=== PATIENT | female | born 1940 | race Caucasian/White ===

== ENCOUNTER 2016-09-04 18:09 | Inpatient (IN) | payer MEDICARE, OTHER ==
[~2016-09-04] VITALS: Ht 165.1 cm; Wt 85.9 kg
[2016-09-04] MEDS ORDERED: DILTIAZEM 125 MG in DEXTROSE 5% 100 ML IV SCH (18:32)
[2016-09-04] MEDS ORDERED: DILTIAZEM 5 MG/ML, 5ML IVPush STA (18:32)
[2016-09-04] MEDS ORDERED: PARO20TA4 PO (18:34)
[2016-09-04] MEDS ORDERED: LISI40TA PO (18:34)
[2016-09-04] MEDS ORDERED: VITA400C40 PO (18:34)
[2016-09-04] MEDS ORDERED: AMLO10TA2 PO (18:34)
[2016-09-04] MEDS ORDERED: ASCO500T8 PO (18:34)
[2016-09-04] MEDS ORDERED: CALCIUM PO (18:34)
[2016-09-04] MEDS ORDERED: ALEN70TA5 PO (18:34)
[2016-09-04] MEDS ORDERED: CHOL20002 PO (18:34)
[2016-09-04] MEDS ORDERED: MAGN400T36 PO (18:34)
[2016-09-04] MEDS ORDERED: METF500T4 PO (18:34)
[2016-09-04] MEDS ORDERED: PYCNOGENOL PO (18:34)
[2016-09-04] MEDS ORDERED: DILTIAZEM 5 MG/ML, 5ML ONE ×2 (18:38→20:13)
[2016-09-04 18:54] LABS: BLOOD UREA NITROGEN 24 mg/dL (7-18)
[2016-09-04] MEDS ORDERED: ENOXAPARIN 80 MG/0.8 ML ONE (20:17)
[2016-09-04] MEDS ORDERED: DILTIAZEM 5 MG/ML, 5ML IVPush ONE (20:30)
[2016-09-04] MEDS ORDERED: ENOXAPARIN 80 MG/0.8 ML SQ ONE (20:30)
[2016-09-04] MEDS ORDERED: METOPROLOL TARTRATE 25 MG TABLET PO SCH (22:00)
[2016-09-04] MEDS ORDERED: LABETALOL 5MG/ML 40ML VIAL IVPush PRN (22:00)
[2016-09-04] MEDS ORDERED: DILTIAZEM 125 MG in SODIUM CHLORIDE 0.9% 100 ML IV PRN (22:00)
[2016-09-04] MEDS ORDERED: ACETAMINOPHEN 325 MG TABLET PO PRN (22:00)
[2016-09-04 22:27] VITALS: BP 132/89
[2016-09-04] MEDS ORDERED: PARO10TA3 PO (23:03)
[2016-09-05 02:01] VITALS: BP 113/78
[2016-09-05] MEDS ORDERED: ENOXAPARIN 80 MG/0.8 ML SQ SCH (06:00)
[2016-09-05 06:23] LABS: BLOOD UREA NITROGEN 28 mg/dL (7-18)
[2016-09-05] MEDS: INSULIN ASPART 100 UNITS/ML, PEN SQ-INSULIN SCH ×4 (07:00→21:00)
[2016-09-05] MEDS ORDERED: GLUCAGON 1 MG IM PRN (07:00)
[2016-09-05] MEDS ORDERED: DEXTROSE 50%, 50ML SYRINGE IVPush PRN (07:00)
[2016-09-05] MEDS ORDERED: DEXTROSE 4 GM TAB.CHEW PO PRN (07:00)
[2016-09-05 07:47] VITALS: BP 137/77
[2016-09-05] MEDS: LISINOPRIL 20 MG TABLET PO SCH (08:36)
[2016-09-05] MEDS: PAROXETINE 10 MG TABLET PO SCH (08:37)
[2016-09-05] MEDS: AMLODIPINE 5 MG TABLET PO SCH (08:38)
[2016-09-05] MEDS: SODIUM CHLORIDE FLUSH 10ML SYR IVF SCH ×2 (08:39→21:00)
[2016-09-05] MEDS: APIXABAN 5 MG TABLET PO SCH ×2 (08:46→21:32)
[2016-09-05] MEDS ORDERED: METOPROLOL TARTRATE 25 MG TABLET PO SCH ×2 (09:00→11:00)
[2016-09-05] MEDS ORDERED: PAROXETINE 20 MG TABLET PO SCH (09:00)
[2016-09-05 14:10] VITALS: BP 102/63
[2016-09-05 19:27] VITALS: BP 167/82
[2016-09-05 21:30] VITALS: BP 137/78
[2016-09-05] MEDS: METOPROLOL TARTRATE 25 MG TABLET PO SCH (21:32)
[2016-09-05] MEDS ORDERED: DILTIAZEM 125 MG in SODIUM CHLORIDE 0.9% 100 ML IV PRN (22:00)
[2016-09-05] MEDS ORDERED: DILTIAZEM 30 MG TABLET PO SCH (23:30)
[2016-09-06 01:16] VITALS: BP 143/80
[2016-09-06 06:41] LABS: BLOOD UREA NITROGEN 33 mg/dL (7-18)
[2016-09-06] MEDS: INSULIN ASPART 100 UNITS/ML, PEN SQ-INSULIN SCH (07:00)
[2016-09-06 07:23] VITALS: BP 145/83
[2016-09-06] MEDS: APIXABAN 5 MG TABLET PO SCH (08:58)
[2016-09-06] MEDS: LISINOPRIL 20 MG TABLET PO SCH (08:58)
[2016-09-06] MEDS: METOPROLOL TARTRATE 25 MG TABLET PO SCH (08:59)
[2016-09-06] MEDS: PAROXETINE 10 MG TABLET PO SCH (08:59)
[2016-09-06] MEDS: AMLODIPINE 5 MG TABLET PO SCH (08:59)
[2016-09-06] MEDS ORDERED: METO25TA35 PO (10:39)
[2016-09-06] MEDS ORDERED: APIX5TAB PO (10:39)
== END 2016-09-06 13:00 | disposition home or self-care (01) | DRG 309 ==
LOC: ED 19:29 → EDIP 20:50 → 5SO 22:28
PROVIDERS: ADMIT Family Medicine; ATTEND Family Medicine
DX: I48.91 Unspecified atrial fibrillation (principal); N17.9 Acute kidney failure, unspecified; E11.9 Type 2 diabetes mellitus without complications; F39 Unspecified mood [affective] disorder; I10 Essential (primary) hypertension; F32.9 Major depressive disorder, single episode, unspecified; M81.0 Age-related osteoporosis without current pathological fracture; Z79.84 Long term (current) use of oral hypoglycemic drugs; Z79.899 Other long term (current) drug therapy; Z87.891 Personal history of nicotine dependence; Z88.5 Allergy status to narcotic agent; Z88.6 Allergy status to analgesic agent; Z88.8 Allergy status to other drugs, medicaments and biological substances
CPT/HCPCS: 36415; 71010; 80048; 82040; 82962; 85025; 85610; 85730; 93005; 93306; 96374; 96375; J1650

== ENCOUNTER → 2016-10-08 | Outpatient (CLI) | payer OTHER ==
[~2016-10-08] MED LIST: ALEN70TA5 PO; AMLO10TA2 PO; APIX5TAB PO; ASCO500T8 PO; CALCIUM PO; CHOL20002 PO; LISI40TA PO; MAGN400T36 PO; METF500T4 PO; METO25TA35 PO; PARO10TA3 PO; PARO20TA4 PO; PYCNOGENOL PO; VITA400C43 PO
== END | disposition home or self-care (01) ==
LOC: CVU 09:14
PROVIDERS: ATTEND Family Medicine
DX: I70.202 Unspecified atherosclerosis of native arteries of extremities, left leg (principal); I70.201 Unspecified atherosclerosis of native arteries of extremities, right leg; E11.9 Type 2 diabetes mellitus without complications; I10 Essential (primary) hypertension; I48.91 Unspecified atrial fibrillation; M25.552 Pain in left hip; M25.551 Pain in right hip; R25.2 Cramp and spasm; Z72.0 Tobacco use
CPT/HCPCS: 93922; 93925; 93978

== ENCOUNTER → 2017-07-21 | Outpatient (CLI) | payer OTHER ==
[~2017-07-21] MED LIST changes: +AMOX1TAB64 PO; +CLIN300C8 PO; +GADOBUTROL 10 MMOL/10 ML PFS ONE; +HYDR-3240 PO
== END | disposition home or self-care (01) ==
LOC: CFH 12:25
PROVIDERS: ATTEND Ophthalmology
DX: G31.89 Other specified degenerative diseases of nervous system (principal); H46.9 Unspecified optic neuritis; H53.9 Unspecified visual disturbance
CPT/HCPCS: 70543; 70553; A9585

== ENCOUNTER 2020-12-21 04:38 | Inpatient (IN) | payer OTHER ==
[~2020-12-21] VITALS: Ht 165.1 cm; Wt 83.8 kg
[~2020-12-21 04:38] MED LIST changes: -ALEN70TA5 PO; +ALEN70TA77 PO; +AMIO200T42 PO; +AMLO-211 PO; -AMLO10TA2 PO; +APIX2.5T PO; -CHOL20002 PO; +CHOL200052 PO; -CLIN300C8 PO; +CLIN300C9 PO; -GADOBUTROL 10 MMOL/10 ML PFS ONE; +HYDR-2214 PO; -HYDR-3240 PO; -LISI40TA PO; +LISI40TA9 PO; +METF500T17 PO; -METF500T4 PO
--- NOTE | 2020-12-21 04:59 | NUR ---
BIB [facility] FROM HOME. PT C/O DIFFICULTY BREATHING X2 DAYS. DX COVID + 11/11, ADMIT 11/18, DC HOME WITH O2. LEFT KIDNEY PAIN FOR MONTHS, HX KIDNEY SURG. EKG COMPLETE. PT CONNECTED TO ALL MONITORING. PT ON BASELINE HOME OXYGEN OF 4L. PT USING ACCESSORY MUSCLES FOR BREATHING. CALL LIGHT IN REACH. AWAITING ORDERS.
[2020-12-21] MEDS ORDERED: AMIO200T42 PO (05:32)
[2020-12-21] MEDS ORDERED: DILTIAZEM 5 MG/ML, 5ML ONE (05:38)
[2020-12-21 05:55] LABS: BASOPHILS % (AUTO) 1 % (0-1); EOSINOPHILS % (AUTO) 2 % (1-7); LYMPHOCYTES % (AUTO) 15 % (22-44); MEAN CORPUSCULAR HEMOGLOBIN 26.8 pg (27.0-34.8); MEAN CORPUSCULAR HGB CONC 31.7 g/dL (32.4-35.8); MEAN PLATELET VOLUME 9.5 fL (7.4-10.4); MONOCYTES % (AUTO) 15 % (2-9); NEUTROPHILS % (AUTO) 68 % (42-75); PLATELET COUNT 170 x10^3/uL (130-400); RED BLOOD COUNT 4.64 x10^6/uL (3.82-5.3); RED CELL DISTRIBUTION WIDTH 18.2 % (9.6-15.2)
[2020-12-21] MEDS ORDERED: DILTIAZEM 125 MG in SODIUM CHLORIDE 0.9% 100 ML IV SCH (06:00)
[2020-12-21] MEDS ORDERED: DILTIAZEM 5 MG/ML, 5ML IV ONE (06:00)
--- NOTE | 2020-12-21 06:01 | NUR ---
MINIMAL HR CHANGE AFTER DILT 10MG IV. DILT DRIP STARTED PER JUN. PT CONNECTED TO ALL MONITORING. CALL LIGHT IN REACH.
[2020-12-21 06:09] LABS: ANION GAP 8 mmol/L (5-15); CHLORIDE 112 mmol/L (98-107)
[2020-12-21 06:16] LABS: ALANINE AMINOTRANSFERASE 24 U/L (12-78); ALKALINE PHOSPHATASE 79 U/L (45-117); BILIRUBIN,TOTAL 0.6 mg/dL (0.2-1.0); CREATININE 2.22 mg/dL (0.55-1.02); TOTAL PROTEIN 6.3 g/dL (6.4-8.2); TROPONIN I < 0.015 ng/mL (0.000-0.045)
[2020-12-21] MEDS ORDERED: FUROSEMIDE 20 MG/2 ML IV ONE (06:30)
[2020-12-21] MEDS ORDERED: FUROSEMIDE 20 MG/2 ML ONE (06:42)
[2020-12-21 06:59] LABS: INTERNATIONAL NORMALIZED RATIO 1.01 (0.93-1.1); PROTHROMBIN TIME 10.8 Seconds (9.6-11.5)
[2020-12-21] MEDS ORDERED: VANCOMYCIN PER PHARMACY MC ONE (07:00)
[2020-12-21] MEDS ORDERED: VANCOMYCIN 1,800 MG in SODIUM CHLORIDE 0.9% 250 ML IV ONE (07:00)
[2020-12-21] MEDS ORDERED: PIPERACILLIN/TAZO 3.375 GM in DEXTROSE 5% 50 ML IVPB ONE (07:00)
--- NOTE | 2020-12-21 07:46 | NUR ---
LATE ENTRY D/T PT CARE: REPORT RECEIVED FROM GELY RAMOS. 2ND PIV ESTABLISHED, ABX STARTED. PT RESTING ON GURNEY W/ CALL LIGHT IN REACH AND SIDE RAILS UPX2. RESP EVEN AND UNLABORED, JOEY. AWAITING ADMIT.
--- NOTE | 2020-12-21 08:28 | NUR ---
PT AMBULATED TO BEDSIDE COMMODE W/ 1 PERSON ASSIST. HOSPITAL BED PLACED IN ROOM. PT RETURNED TO BED W/O INCIDENT. RESP EVEN AND UNLABORED, JOEY.
--- NOTE | 2020-12-21 09:20 | NUR ---
PT PROVIDED W/ DIET TRAY, OK PER . PROVIDED W/ PILLOW PER PT REQUEST. RESTING ON HOSPITAL BED W/ CALL LIGHT IN REACH AND SIDE RAILS UPX2. RESP EVEN AND UNLABORED, JOEY.
--- NOTE | 2020-12-21 14:19 | NUR ---
pt resting comfortably at his time. pt back in bed from commode. pt consumed majority of meal.
[2020-12-21 16:00] VITALS: BP 130/86
[2020-12-21 16:06] VITALS: BP 130/86
[2020-12-21] MEDS ORDERED: METO25TA4 PO (17:20)
[2020-12-21] MEDS ORDERED: ONDANSETRON 2MG/ML, 2ML IVPush PRN (17:30)
[2020-12-21] MEDS ORDERED: VANCOMYCIN PER PHARMACY MC PRN (17:30)
[2020-12-21] MEDS ORDERED: DOCUSATE 100 MG CAPSULE PO PRN (17:30)
[2020-12-21] MEDS ORDERED: ACETAMINOPHEN 325 MG TABLET PO PRN (17:30)
[2020-12-21] MEDS ORDERED: HYDROcodone/APAP 5/325 TABLET PO PRN (17:30)
[2020-12-21] MEDS ORDERED: POLYETHYLENE GLYCOL 17 GM PACKET PO PRN (17:30)
[2020-12-21] MEDS: DILTIAZEM 125 MG in SODIUM CHLORIDE 0.9% 100 ML IV SCH (17:45)
[2020-12-21] MEDS ORDERED: PHARMACOKINETIC CONSULTATION MC ONE (18:00)
[2020-12-21] MEDS ORDERED: PHARMACOKINETIC MONITORING MC PRN (18:00)
[2020-12-21] MEDS: METRONIDAZOLE PMX 500MG/100ML 100 ML IV SCH (18:24)
[2020-12-21 19:05] VITALS: BP 113/79
[2020-12-21] MEDS: CEFEPIME 2 GM in DEXTROSE 5% 100 ML IV SCH (20:42)
[2020-12-21] MEDS: APIXABAN 2.5 MG TABLET PO SCH (20:43)
[2020-12-21] MEDS: METOPROLOL TARTRATE 25 MG TAB PO SCH (20:43)
[2020-12-22 00:31] VITALS: BP 109/71
[2020-12-22] MEDS: METRONIDAZOLE PMX 500MG/100ML 100 ML IV SCH ×3 (02:20→16:54)
[2020-12-22] MEDS: CEFEPIME 2 GM in DEXTROSE 5% 100 ML IV SCH ×2 (04:14→12:08)
[2020-12-22 05:27] LABS: D-DIMER 2.34 ug/mlFEU (0.00-0.52)
[2020-12-22 05:29] LABS: BASOPHILS % (AUTO) 1 % (0-1); EOSINOPHILS % (AUTO) 3 % (1-7); LYMPHOCYTES % (AUTO) 12 % (22-44); MEAN CORPUSCULAR HEMOGLOBIN 26.2 pg (27.0-34.8); MEAN CORPUSCULAR HGB CONC 31.1 g/dL (32.4-35.8); MEAN PLATELET VOLUME 9.1 fL (7.4-10.4); MONOCYTES % (AUTO) 16 % (2-9); NEUTROPHILS % (AUTO) 68 % (42-75); PLATELET COUNT 198 x10^3/uL (130-400); RED BLOOD COUNT 4.67 x10^6/uL (3.82-5.3); RED CELL DISTRIBUTION WIDTH 17.9 % (9.6-15.2)
[2020-12-22 05:35] LABS: ALBUMIN 2.8 g/dL (3.4-5.0); ANION GAP 4 mmol/L (5-15); CALCIUM 8.8 mg/dL (8.5-10.1); CHLORIDE 111 mmol/L (98-107)
[2020-12-22 05:47] LABS: ALANINE AMINOTRANSFERASE 23 U/L (12-78); ALKALINE PHOSPHATASE 74 U/L (45-117); BILIRUBIN,TOTAL 0.5 mg/dL (0.2-1.0); CREATININE 2.24 mg/dL (0.55-1.02); TOTAL PROTEIN 6.2 g/dL (6.4-8.2); VANCOMYCIN,RANDOM 16.6 mcg/mL
[2020-12-22] MEDS: DILTIAZEM 125 MG in SODIUM CHLORIDE 0.9% 100 ML IV SCH (05:50)
[2020-12-22 06:54] VITALS: BP 113/74
[2020-12-22] MEDS ORDERED: DEXAMETHASONE 4 MG/ML, 1ML IVPush SCH (09:00)
[2020-12-22] MEDS ORDERED: AMIODARONE 200 MG TABLET PO SCH (09:00)
[2020-12-22] MEDS: FUROSEMIDE 20 MG/2 ML IV SCH ×2 (09:03→16:54)
[2020-12-22] MEDS: APIXABAN 2.5 MG TABLET PO SCH ×2 (09:04→21:36)
[2020-12-22] MEDS: METOPROLOL TARTRATE 25 MG TAB PO SCH (09:04)
[2020-12-22] MEDS ORDERED: DILTIAZEM 5 MG/ML, 5ML IVPush PRN (09:30)
[2020-12-22] MEDS ORDERED: METOPROLOL TARTRATE 25 MG TAB PO ONE (09:30)
[2020-12-22 12:48] VITALS: BP 105/72
[2020-12-22] MEDS ORDERED: METOPROLOL TARTRATE 25 MG TAB PO SCH (21:00)
[2020-12-22 21:31] VITALS: BP 121/81
[2020-12-23 00:41] VITALS: BP 125/82
[2020-12-23] MEDS: METRONIDAZOLE PMX 500MG/100ML 100 ML IV SCH ×2 (01:39→08:55)
[2020-12-23 05:55] LABS: ANION GAP 6 mmol/L (5-15); CALCIUM 8.8 mg/dL (8.5-10.1); CHLORIDE 112 mmol/L (98-107)
[2020-12-23 05:56] LABS: BASOPHILS % (AUTO) 0 % (0-1); EOSINOPHILS % (AUTO) 0 % (1-7); LYMPHOCYTES % (AUTO) 8 % (22-44); MEAN CORPUSCULAR HEMOGLOBIN 26.7 pg (27.0-34.8); MEAN CORPUSCULAR HGB CONC 31.9 g/dL (32.4-35.8); MEAN PLATELET VOLUME 9.5 fL (7.4-10.4); MONOCYTES % (AUTO) 7 % (2-9); NEUTROPHILS % (AUTO) 86 % (42-75); PLATELET COUNT 172 x10^3/uL (130-400)
[2020-12-23 06:00] LABS: CREATININE 2.48 mg/dL (0.55-1.02); VANCOMYCIN,RANDOM 12.7 mcg/mL
[2020-12-23 08:49] VITALS: BP 124/83
[2020-12-23] MEDS: APIXABAN 2.5 MG TABLET PO SCH ×2 (08:56→20:26)
[2020-12-23] MEDS: FUROSEMIDE 20 MG/2 ML IV SCH ×2 (08:56→17:51)
[2020-12-23] MEDS: AMIODARONE 200 MG TABLET PO SCH (08:56)
[2020-12-23] MEDS: METOPROLOL TARTRATE 25 MG TAB PO SCH ×2 (08:56→20:26)
[2020-12-23] MEDS ORDERED: CEFEPIME 2 GM in DEXTROSE 5% 100 ML IV SCH (12:00)
[2020-12-23] MEDS ORDERED: VANCOMYCIN 1,200 MG in SODIUM CHLORIDE 0.9% 250 ML IV ONE (12:00)
[2020-12-23 13:36] VITALS: BP 99/66
[2020-12-23 17:48] VITALS: BP 104/70
[2020-12-23 20:17] VITALS: BP 110/76
[2020-12-24 00:06] VITALS: BP 120/79
[2020-12-24 05:57] LABS: CHLORIDE 109 mmol/L (98-107)
[2020-12-24 06:03] LABS: ANION GAP 9 mmol/L (5-15); CALCIUM 8.4 mg/dL (8.5-10.1); CREATININE 2.73 mg/dL (0.55-1.02)
[2020-12-24 07:51] VITALS: BP 109/69
[2020-12-24] MEDS: METOPROLOL TARTRATE 25 MG TAB PO SCH (08:18)
[2020-12-24] MEDS: AMIODARONE 200 MG TABLET PO SCH (08:18)
[2020-12-24] MEDS: FUROSEMIDE 20 MG/2 ML IV SCH (08:18)
[2020-12-24] MEDS: APIXABAN 2.5 MG TABLET PO SCH (08:18)
[2020-12-24] MEDS ORDERED: METO25TA4 PO (10:30)
[2020-12-24] MEDS ORDERED: AMIO200T42 PO (10:30)
== END 2020-12-24 12:30 | disposition home or self-care (01) | DRG 871 ==
LOC: ED 06:27 → SUATTDRO 07:04 → EDIP 07:04 → 5SO 16:03
PROVIDERS: ADMIT Internal Medicine; ATTEND Internal Medicine
DX: A41.9 Sepsis, unspecified organism (principal); G93.41 Metabolic encephalopathy; I50.33 Acute on chronic diastolic (congestive) heart failure; D68.69 Other thrombophilia; I48.20 Chronic atrial fibrillation, unspecified; I13.0 Hypertensive heart and chronic kidney disease with heart failure and stage 1 through stage 4 chronic kidney disease, or unspecified chronic kidney disease; J96.11 Chronic respiratory failure with hypoxia; N17.9 Acute kidney failure, unspecified; N18.4 Chronic kidney disease, stage 4 (severe); F03.90 Unspecified dementia, unspecified severity, without behavioral disturbance, psychotic disturbance, mood disturbance, and anxiety; E11.22 Type 2 diabetes mellitus with diabetic chronic kidney disease; E88.09 Other disorders of plasma-protein metabolism, not elsewhere classified; Z79.01 Long term (current) use of anticoagulants; Z80.3 Family history of malignant neoplasm of breast; Z86.16 Personal history of COVID-19; Z87.891 Personal history of nicotine dependence; Z90.5 Acquired absence of kidney; Z88.5 Allergy status to narcotic agent; Z88.8 Allergy status to other drugs, medicaments and biological substances
CPT/HCPCS: 36415; 71045; 80048; 80053; 80202; 83605; 83735; 83880; 84100; 84145; 84484; 85025; 85379; 85384; 85610; 85730; 86140; 87040; 87081; 93005; 93306; 93970; 96374; 99285; G0378; J1100; J2543; J3370; J1940; J7050